=== PATIENT | female | born 1930 | race Caucasian/White ===

== ENCOUNTER 2016-09-26 09:33 | Emergency (ER) | payer MEDICARE, OTHER ==
[2016-09-26] MEDS ORDERED: ASPIRIN 81 MG CHEW TAB ONE (10:11)
[2016-09-26] MEDS ORDERED: ALU/MAG/SIM 30 ML UDC ONE (13:21)
[2016-09-26] MEDS ORDERED: LIDOCAINE 2% VISC 15 ML UDC ONE (13:21)
== END 2016-09-26 14:21 | disposition home or self-care (01) ==
LOC: ER 09:33
CPT/HCPCS: 36415; 71010; 80053; 82550; 83735; 84484; 85025; 85610; 85730; 93005